=== PATIENT | female | born 1975 | race Caucasian/White ===

== ENCOUNTER 2018-07-01 18:22 | Emergency (ER) | payer MEDICAID, SELFPAY ==
[~2018-07-01 18:22] MED LIST: Iopamidol 370 76% 125 ML VIAL FS ONE
[2018-07-01] MEDS ORDERED: Lorazepam 2 MG/ML VIAL ONE (18:42)
[2018-07-01] MEDS ORDERED: Morphine 4 MG/ML VIAL ONE ×2 (18:43→21:29)
[2018-07-01 18:58] LABS: Band 2 % (5-11); Hemoglobin 14.1 g/dL (12.0-16.0); Lymphocytes 45 % (21-51); MDiff Complete? YES; Mean Corpuscular HGB CONC 32.5 g/dL (32.0-36.0); Mean Corpuscular Hemoglobin 28.8 pg (27.0-31.0); Mean Corpuscular Volume 88.7 fL (78.0-98.0); Mean Platelet Volume 6.4 fL (7.4-10.4); Monocytes 9 % (0-10); Neutrophil 29 % (42-75); PLT Morphology Comment Appears Adequate; Platelet Count 308 thou/uL (130-400); RBC Distribution Width 13.9 % (11.5-14.5); Reactive Lymphocytes 15 % (0-10); White Blood Cell (WBC) Count 6.9 thou/uL (4.8-10.8)
[2018-07-01 18:59] LABS: Anion Gap 18 mmol/L (10-20); BUN (Urea Nitrogen) 14 mg/dL (7.0-18.7); Calc. Creatinine Clearance 0 mL/min (70-130); Calcium 9.5 mg/dL (7.8-10.44); Carbon Dioxide 19 mmol/L (22-29); Chloride 108 mmol/L (98-107); Estimated GFR-MDRD 73; Glucose 99 mg/dL (70-105); Potassium 4.7 mmol/L (3.5-5.1); Sodium 140 mmol/L (136-145)
[2018-07-01 19:06] LABS: CKMB 2.9 ng/mL (0-6.6); Troponin I Less than 0.010 ng/mL (< 0.028)
--- NOTE | 2018-07-01 19:50 | RAD ---
ONE VIEW CHEST: History: Pain. Comparison: None. FINDINGS: Normal cardiac silhouette. The lungs and pleural spaces are clear. No pneumothorax or osseous abnorma lity. IMPRESSION: No acute cardiopulmonary process. POS: PPP
--- NOTE | 2018-07-01 20:54 | CT ---
CTA THORAX WITH CONTRAST: 07/01/2018 7:32 p.m. (Computed Tomographic Angiography, chest(noncoronary) with contrast material, and image post processi ng) (PE protocol) HISTORY: A 43-year-old female with chest pain, dyspnea and elevated D-dimer. TECHNIQUE: IV injection of iodinated contrast: Administered. Scan acquisition timing attempted to coincide with iodinated contrast bolus reaching maximal density in pulmonary arteries. 3D MIP reconstructions. FINDINGS: Pulmonary thromboembolism: None. Lungs: Clear. Pneumothorax: None. Pleural effusion: None. Thoracic aorta: No aneurysm or dissection. Mediastinum: No lymphadenopathy or other mass. Sally: No lymphadenopathy or other mass. Approximately 15% to 20% of the stomach has herniated superior to the diaphragm into the posterior-in ferior mediastinum. IMPRESSION: 1. No pulmonary thromboembolism or any other acute findings. 2. Small to moderate sized sliding hiatal hernia. brooks[] POS: PERRY
[2018-07-01] MEDS ORDERED: Metoclopramide HCl 10 MG/2 ML VIAL ONE (21:29)
[2018-07-01] MEDS ORDERED: Ondansetron HCl/PF 4 MG/2 ML Vial ONE (21:29)
== END 2018-07-01 22:53 | disposition home or self-care (01) ==
LOC: MADERS 18:22
DX: K21.0 Gastro-esophageal reflux disease with esophagitis (principal); K44.9 Diaphragmatic hernia without obstruction or gangrene; F17.210 Nicotine dependence, cigarettes, uncomplicated; E03.9 Hypothyroidism, unspecified; K21.9 Gastro-esophageal reflux disease without esophagitis; Z79.899 Other long term (current) drug therapy
CPT/HCPCS: 71045; 71275; 80048; 82553; 84484; 85025; 85379; 93005; 94760; 96374; 96375; 96376; J2060; J2270; J2405; J2765